=== PATIENT | male | born 1965 | race African-American/Black ===

== ENCOUNTER 2021-06-29 17:01 | Inpatient (IN) | payer SELFPAY ==
[~2021-06-29] VITALS: Ht 185.4 cm; Wt 54.3 kg
--- NOTE | 2021-06-29 17:46 | PHYS DOC ---
Past Medical History Past Medical History: No Pertinent History (GURVINDER NETTLES DO) Past Surgical History: No Surgical History, Other Additional Past Surgical Histo: L eye removed (GURVINDER NETTLES DO) Smoking Status: Never Smoker Alcohol Use: None Drug Use: None (GURVINDER NETTLES DO) General Adult EDM: Chief Complaint: SHORTNESS OF BREATH HPI: HPI: 55-year-old male presents to the emergency department with shortness of breath for the last several days worsening today. He reports that he was recently exp osed to his who was Covid positive last week. He also admits to a cough that is productive. He denies any chest pain currently. He further denies any trauma or injuries. The patient denies nausea, vomiting, fever, chills, abdominal pain, urinary symptoms, recent trauma, or any other complaints. The patient denies any history of blood clots in his legs or his lungs, no personal history of any cancers or clotting disorders. (GURVINDER NETTLES DO) Review of Systems: Review of Systems: Constitutional: Denies fever or chills. Eyes: Denies change in vision, pain. HENT: Denies congestion or sore throat. Respiratory: Admits to cough and shortness of breath. Cardiovascular: Denies chest pain or edema. GI: Denies abdominal pain, nausea. : Denies change in urination, dysuria. Musculoskeletal: Denies extremity pain, or trauma. Skin: Denies rash, skin change. Neurologic: Denies headache, focal weakness. Psychiatric: Denies depression or anxiety. All other systems reviewed as negative except for what was mentioned in the HPI. (GURVINDER NETTLES DO) Heart Score: C/O Chest Pain: No (GURVINDER NETTLES DO) C/O Chest Pain: N/A (LYSSADANISHA I DO) C/O Chest Pain: N/A (RUDOLPH WAHL T DO) Family History: Family History: Noncontributory (GURVINDER NETTLES DO) Allergies: Allergies: Allergies Coded Allergies Type Severity Reaction Last Updated Verified No Known Drug Allergies 06/29/21 No (GURVINDER NETTLES DO) Physical Exam: PE: Constitutional: No acute distress, non-toxic appearance. Speaking full sentences HENT: Atraumatic, bilateral external ears normal, nose normal. Eyes: PERRLA, EOMI, conjunctiva normal, no discharge. Neck: Normal range of motion, supple, no stridor. Cardiovascular: Heart rate regular rhythm. 2+ radial pulses Lungs & Thorax: No respiratory distress, symmetrical expansion. Abdomen: Soft, no tenderness Skin: Warm, dry. Extremities: No tenderness, no cyanosis, ROM intact, no edema. Neurologic: Alert and oriented X 3, normal motor function, normal sensory function, no focal deficits noted. GCS 15. Psychologic: Affect normal, judgment normal, mood normal. (GURVINDER NETTLES DO) Current Patient Data: Vital Signs: Vital Signs Date Time Temp Pulse Resp B/P (MAP) Pulse Ox O2 Delivery O2 Flow Rate FiO2 06/29/21 17:23 97.9 111 18 106/64 64 Room Air 97.9 (GURVINDER NETTLES DO) EKG: EKG: Sinus tachycardia rate of 113, peak T waves seen in the lateral and septal precordial leads, no ectopic beats, normal axis, normal NM, QRS, and QTc intervals. Impression: Peak T waves, possible hyperkalemic changes. Interpreted by me, Gurvinder Nettles D.O. (GURVINDER NETTLES DO) Radiology/Procedures: Radiology/Procedures: [] (GURVINDER NETTLES DO) Impression: Findings: Single upright portable exam of the chest was performed. Heart and mediastinal contours within normal limits. There is a large pneumothorax on the right with mediastinal shift toward the left. Prominent reticular nodular markings throughout the left lung. No pleural effusion. No left-sided pneumothorax. IMPRESSION: 1. Large right-sided pneumothorax with mediastinal shift, suggesting tension pneumothorax. 2. Left-sided airspace disease, atelectasis versus edema or pneumonia. CT chest with contrast PQRS statement: CT scans at this facility use dose reduction including either automated exposure control, iterative reconstructions, and /or weight based radiation dosing via mA and kV modification when appropriate to reduce radiation dose to as low as reasonably achievable. Contrast: 60 mL Omnipaque 300 intravenous contrast HISTORY: Persistent pneumothorax, positive Covid infection, ruptured pneumatocele. COMPARISON: Prior chest x-ray from 11/29/2020 FINDINGS: There is a right thoracostomy tube in place. There is a massive right- sided pneumothorax with collapse of most of the lung, and leftward shift of heart and mediastinum suggesting tension pneumothorax, this is similar to recent chest x-rays which have been previously reported. There is pulmonary emphysema bilaterally. There is a portion of the right upper lobe anterior segment which demonstrates some thin linear bands extending to the posterolateral chest wall could represent some adhesions, there is no obvious subpleural bulla with rupture across the visceral pleura to identify a potential source of this spontaneous pneumothorax. There is opacity of the collapsed right middle lobe and right upper lobe surrounding the vipul. The left lung is aerated, demonstrates mild groundglass opacities at the upper and lower lobes with some areas of greater consolidated density along the posterior lateral basilar lower lobe. Trachea and bronchi are unremarkable. This volume of subcentimeter in thickness right pleural fluid at the lower chest. Heart size normal. Aorta, pulmonary vessels and esophagus unremarkable. No adenopathy in the chest. Bones are unremarkable. IMPRESSION: 1. Right thoracostomy tube in place with a persistent large right-sided pneumothorax, partial collapse of most of the right lung, and persistent leftward shift of the heart and mediastinum stable to recently reported chest x- rays as described above. 2. Opacities of portions of the right middle lobe and right upper lobe could be due to atelectasis or multilobar pneumonia. 3. Pulmonary emphysema. (DANISHA LOCKWOOD DO) Radiology/Procedures: [facility] [address] [place], [place] [id number] IMAGING REPORT Signed PATIENT: REJI PATINO ACCOUNT: [id number] : 1965 LOCATION: ER AGE: 55 SEX: M EXAM STATUS: REG ER ORD. PHYSICIAN: RUDOLPH WAHL DO REASON: RIGHT SIDE PNEUMOTHORAX, CHEST TUBE IN PLACE PROCEDURE: CHEST AP ONLY XR CHEST 1V History: Reason: RIGHT SIDE PNEUMOTHORAX, CHEST TUBE IN PLACE / Spl. Instructions: / History: Comparison: June 29, 2021 Findings: Decreased right pneumothorax with large residual. Right thoracostomy tube projecting over the mid chest. Diffuse interstitial changes. Small right pleural effusion, increased compared to prior. Unchanged heart size. Decreased leftward mediastinal shift. Increased right chest wall subcutaneous gas. Impression: 1. Decreased right pneumothorax with decreased leftward mediastinal shift. Large residual pneumothorax. Interval repositioning of right thoracostomy tube. 2. Increased small right pleural effusion. Electronically signed by: Jose Gaitan DO (06/30/2021 9:07 AM) [id number] DICTATED and SIGNED BY: JOSE GAITAN DO DATE: 06/30/21 [id number] [facility] [address] [place] [address] IMAGING REPORT Signed PATIENT: REJI PATINO ACCOUNT: [id number] : 1965 LOCATION: ER AGE: 55 SEX: M EXAM STATUS: REG ER ORD. PHYSICIAN: RUDOLPH WAHL DO REASON: right side pneumothorax, s/p chest tube placement, evaluate for improvement PROCEDURE: CHEST AP ONLY XR CHEST 1V Clinical Indication: Reason: right side pneumothorax, s/p chest tube placement, evaluate for improvement / Comparison: AP chest, earlier same day. Findings: Mid hemithorax right chest tube is in similar position. Large right pneumothorax but mildly improved from prior study. Diffuse left lung interstitial opacities are unchanged. Leftward mediastinal shift is mildly improved. Right chest wall subcutaneous air is similar, incompletely imaged. Small right pleural effusion is unchanged. IMPRESSION: 1. Stable right chest tube. Large pneumothorax is mildly improved from prior study. Leftward mediastinal shift is mildly improved. Small right pleural effusion is unchanged. 2. Diffuse left lung interstitial opacities are unchanged. Electronically signed by: Neo Soria MD (06/30/2021 2:56 PM) [id number] DICTATED and SIGNED BY: NEO SORIA MD DATE: 06/30/21 [id number] (RUDOLPH WAHL DO) Course & Med Decision Making: Course & Med Decision Making The patient was seen emergently by me due to a hypoxic SPO2 reading in triage of 64% with good waveform at 1730. The patient was placed on a nonrebreather at 15 L which improved his O2 saturations. His initial EKG showed sinus tachycardia with possible hyperkalemic changes. 2 g of calcium gluconate were ordered. Patient was signed out to Dr. Lockwood at 1800 pending workup and likely admisison Critical care time was 30 minutes which includes time at bedside, spent in d iscussion of patient's care with specialists and/or family members, with interpretation of laboratory and/or radiological studies and is exclusive of procedures. Upon chart review, patient with large PTX likely causing his hypoxia, complicated by COVID. CXR was not immediately available to review prior to my sign out to oncoming physician. Per documentation, radiologist discussed critical finding with Dr. Lockwood at 1806 (GURVINDER NETTLES DO) Course & Med Decision Making Assumed care at shift change- Disposition with probable admission. Labs and radiologic imaging pending at shift change. Discussed Xray finds with Radiologist. Large right pneumothorax- suggestive of tension. Emergent pigtail chest tube placed. Procedure- Procedure #1 Pigtail chest tube prepackaged kit used RIght mid axillary line lateral to right nipple Betadine was used to clean the area. Sterile towels were placed around site. I did also use Lidocaine with EPI used for local anesthesia. Once successful anesthesia was achieved an incision that with was made over the fourth lateral rib. Dissection down to the rib with finger. Used needle chest tube introducer to place tube in the right chest. Introducer was removed. Pigtail catheter was sutured to the chest using device Petroleum jelly dressing placed Repeat chest xray post placement. Per in acute change in pneumothorax Procedure #2 Pigtail chest tube prepackaged kit used RIght mid axillary line lateral to right nipple Betadine was used to clean the area. Sterile towels were placed around site. Lidocaine with EPI used for local anesthesia. Once successful anesthesia was achieved Previous pigtail chest tube removed. Dissection down to the rib with finger. 2nd pigtail cath chest tube placed-- redirected posteriorly. Introducer was removed. Pigtail catheter was sutured to the chest using device Petroleum jelly dressing placed Pigtail placed to vacuum seal -- No air leak,-- no bubbling Repeat chest xray post placement. 2nd Chest Xray no acute change in pneumothorax Procedure #3 Chest tube kit- hospital pre-made 24FR chest tube Betadine was used to clean the area. Sterile towels were placed around site. Sterile prepackaged site became in the package. Lidocaine with EPI used for local anesthesia. Once successful anesthesia was achieved Previous pigtail chest tube #2 was removed Dissection down to the rib with finger Positive air flow out chest wall Chest tube placed 23FR Condensation in tube. Petroleum jelly dressing placed Chest tube placed to vacuum seal - No air leak,-- no bubbling Repeat chest xray post placement. 2nd Chest Xray no acute change in pneumothorax Discussed patient pulmonology-- Dr Estes- Recommends transfer to facility that has Thoracic Surgery Capability. Attempted Transfer- [facility] - declined transfer due to capacity [facility] - declined transfer due to capacity [facility] - [facility] due [facility] capacity [facility] - transfer due [facility] - No CT surgery [facility]-- Discussed patient with Hospitalist [employer] [facility]- Willing to accept patient but currently does not have a COVID bed available. 0028hrs- Patients stable. Vital signs HR 74 bmp O2 95% on 15L NRB Reviewed CT Chest-- CT Chest-- no acute change when compared to last CXR. NS 1L added. 0145hrs- Re-evaluated Patient stable with no complaints 15L NRB 96% Chest tube connected to suction @ 20. Patient states breathing improved when placed to suction. Accepting hospital pending. 0435hrs Re-evaluation Patient stable 15LNrb 94% Heart rate 68 Chest tube connected to suction @ 20 Patient with no complaints Contacted for transfer (initial) [facility] ([facility]) - declined transfer due to capacity [facility] - declined transfer due to capacity [facility]- declined transfer due to capacity [facility] - declined transfer due to capacity [facility]- Contacted hospitals for transfer [facility] - declined transfer due to capacity [facility] - [facility] transfer due to [facility] - [facility] due to capacity [facility] - transfer due to capacity 0544hrs Re-evaluation Patient stable 15LNrb 97% Heart rate 74 Chest tube connected to suction @ 20 Patient with no complaints Placement/Transfer pending. Patient signed out to Dr Wahl Re-ASSUMED Care at shift change 1800HRS Per signed out from Dr Wahl patient to be accepted by [facility]. I called [facility] to give report--- Discussed patient with Head Concierge and she is requesting ER Documentation. ER Documentation fax to number provided. 3757hrs engineering supervisor informed me that patient not accepted to [facility]. Will need to Admit here to [facility] 1845hrs Discussed patient with Krysta COOK-- Plan to admit patient to [facility] then will do a hospital to hospital transfer to [facility] once bed is available. (DANISHA LOCKWOOD I DO) Course & Med Decision Making I assumed care of this patient as [address] Danisha Lockwood, awaiting for transfer to another facility due to large right side pneumothorax that is not resolving with chest tube placement, need cardiothoracis surgery evaluation. At 8AM, discussed with Dr. Calderón's nurse, cardiothoracic surgeon at [facility], TOLD THAT HE IS IN THE OR AT THIS TIME, NOT ABLE TO DISCUSS, WILL TAKE DOWN INFORMATION, HE WILL CALL WHENEVER HE IS OUT OF THE OR. Repeated chest xray shown improved lung size but still has a large pneumothorax, discussed with bottom liner, Dr. ESTES, who recommended to keep patient in the ER, need to transfer to another facility with cardiothoracis surgery. AT 11:17, This physician called [facility] for transfer, there is no bed available so transfer was declined. CALLED [facility], transfer center at 310 pm, discussed about availability of accepting patient there, informed that they have no [facility] ICU bed, declined transfer at this time. at 5:30 PM ON 06/30/21 I discussed with the cardiothoracic surgeon at [facility] [place], Dr. Duc Carr who recommended to advance the chest tube to apical, willing to see patient at [facility] IF THE HOSPITALIST ACCEPT PATIENT FOR TRANSFER THERE. IF THERE IS NO BED, PATIENT CAN BE ADMITTED HERE AND THEN TRANSFER LATER. I discussed with Dr. Estes, bottom liner here, agreed to see patient if he is admitted here. I discussed with Dr. Watson Tang, hospitalist, agreed to admit patient here. At 6:10 pm, housekeeping and laundry team leader at [facility] via [facility], Krysta Jacobson, Informed that [facility] [place] may have a bed for patient.... Patient's chest tube was advanced by this physician to apical position.. Patient's care is endorsed to Dr. Danisha Lockwood at shift change, awaiting transfer to [place]. (RUDOLPH WAHL DO) Departure Departure Impression: Primary Impression: Hypoxia Additional Impressions: COVID Pneumothorax on right Disposition: 09 ADMITTED INPATIENT Admitting Physician: JUANPABLO (GURVINDER NETTLES DO) GURVINDER NETTLES DO Jun 29, 2021 17:46 DANISHA LOCKWOOD DO Jun 29, 2021 18:51 RUDOLPH WAHL DO Jun 30, 2021 11:24
[2021-06-29 17:51] LABS: BASO % 0 % (0-3); EOS % 0 % (0-3); HEMATOCRIT 52.9 % (39.0-53.0); LYMPH # 0.8 x10^3/uL (1.0-4.8); LYMPH % 7 % (24-48); MEAN CORPUSCULAR HEMOGLOBIN 28 pg (25-35); MEAN CORPUSCULAR HGB CONC 34 g/dL (31-37); MEAN CORPUSCULAR VOLUME 82 fL (79-100); MONO # 0.5 x10^3/uL (0.0-1.1); MONO % 5 % (0-9); NEUT # 10.7 x10^3/uL (1.8-7.7); NEUT % 89 % (31-73); PLATELET COUNT 170 x10^3/uL (140-400); RED BLOOD COUNT 6.46 x10^6/uL (4.30-5.70); RED CELL DISTRIBUTION WIDTH 14.8 % (11.5-14.5); WHITE BLOOD COUNT 12.1 x10^3/uL (4.0-11.0)
[2021-06-29] MEDS ORDERED: CALCIUM GLUCONATE 1,000 MG/10 ML VIAL. IVP ONE (18:00)
[2021-06-29] MEDS ORDERED: KETOROLAC 15 MG/ML VIAL. IVP ONE (18:00)
[2021-06-29] MEDS ORDERED: IV NORMAL SALINE 1000ML BAG 1,000 ML IV SCH (18:00)
[2021-06-29] MEDS ORDERED: methylPREDNISolone SOD SUCC PF 125 MG/2 ML VIAL. IV ONE (18:00)
[2021-06-29] MEDS ORDERED: LIDOCAINE 1%/EPI 1:100,000 20 ML VIAL. ONE (18:08)
--- NOTE | 2021-06-29 18:09 | RAD ---
Single view chest dated 06/29/2021 6:03 PM: COMPARISON: None Clinical Indication: Shortness of breath. Findings: Single upright portable exam of the chest was performed. Heart and mediastinal contours within normal limits. There is a large pneumothorax on the right with mediastinal shift toward the left. Prominent reticular nodular markings throughout the left lung. No pleural effusion. No left-sided pneumothorax . IMPRESSION: 1. Large right-sided pneumothorax with mediastinal shift, suggesting tension pneumothorax. 2. Left-sided airspace disease, atelectasis versus edema or pneumonia. Results discussed with ER physician at approximately 6:06 PM on the day of the study. Electronically signed by: Carlos Alberto Dowd MD (06/29/2021 6:06 PM) AJAY
[2021-06-29] MEDS ORDERED: DEXAMETHASONE SOD PHOS 4 MG/ML VIAL ONE (18:44)
[2021-06-29] MEDS ORDERED: DEXAMETHASONE SOD PHOS 4 MG/ML VIAL IVP ONE (18:45)
[2021-06-29] MEDS ORDERED: LIDOCAINE 1%/EPI 1:100,000 20 ML VIAL. INJ ONE (18:45)
[2021-06-29 18:50] LABS: % ATYL 4 % (0-0); % BANDS 18 % (0-9); % LYMPHS 7 % (24-48); % MONOS 1 % (0-10); % SEGS 70 % (35-66); PLT ESTIMATE ADEQUATE (ADEQUATE)
[2021-06-29 18:50] LABS: CALCIUM 9.4 mg/dL (8.5-10.1); CREATININE 1.5 mg/dL (0.7-1.3); GFR 58.6
[2021-06-29 18:55] LABS: ALBUMIN 2.8 g/dL (3.4-5.0); DIRECT BILIRUBIN 0.1 mg/dL (0.0-0.2); TOTAL BILIRUBIN 0.3 mg/dL (0.2-1.0); TOTAL PROTEIN 8.1 g/dL (6.4-8.2)
--- NOTE | 2021-06-29 18:56 | RAD ---
Exam: Chest one view INDICATION: Chest tube placement TECHNIQUE: Frontal view of the chest Comparisons: None FINDINGS: Interval placement of a right-sided chest tube. There is persistent large right pneumothorax. There m ay be mild decreased mediastinal shift with persistent complete collapse of the right lung. IMPRESSION: Interval placement of a chest tube with persistent complete collapse of the right lung. Exam is essen tially unchanged from prior. Suspect subcutaneous placement of the chest tube. FOR INTERNAL CODING PURPOSES Critical result: Findings discussed with ER physician at 06/29/2021 6:53 PM. RESULT CODE: (C) Electronically signed by: Katharine Shea MD (06/29/2021 6:53 PM) ЕКАТЕРИНА
[2021-06-29] MEDS ORDERED: ONDANSETRON PF 4 MG/2 ML VIAL. IVP PRN (19:00)
--- NOTE | 2021-06-29 20:03 | RAD ---
Single view chest dated 06/29/2021 7:58 PM: COMPARISON: Study dated same day. Clinical Indication: Chest tube placement. Findings: Single upright portable exam of the chest was performed. Large right-sided pneumothorax with complete collapse of the right lung, unchanged. There is mild mediastinal shift to the right. Smallbore chest tube has slightly changed in position, however the pneumothorax is not significant changed in size. Patchy airspace disease throughout the left lung, stable. IMPRESSION: 1. No significant interval change in large right-sided pneumothorax after chest tube adjustment. Electronically signed by: Carlos Alberto Dowd MD (06/29/2021 8:01 PM) AJAY
--- NOTE | 2021-06-29 20:51 | RAD ---
Chest AP only at 2024: Reason for examination: Chest tube placement. Comparison is made to previous study dated 06/29/2021 at 1934. A large bore right chest tube is now present. There continues to be a large right pneumothorax with c ollapse of the right lung which is unchanged. There continue to be interstitial and alveolar opacitie s throughout the left lung field which show no change. The mediastinum shows a slight shift of midlin e to the left. No pleural effusions are seen. The heart size is normal. No acute bony abnormalities a re seen. IMPRESSION: Large right pneumothorax which is unchanged despite the large bore chest tube. Collapse of the right lung field with mild shift of mediastinum to the left suggesting tension pneumo thorax. Continued presence of diffuse opacities throughout the left lung field without interval change. Electronically signed by: Jaz Alvarenga MD (06/29/2021 8:49 PM) JOHNSON
[2021-06-29] MEDS ORDERED: CONTRAST GIVEN. MC PRN (23:15)
[2021-06-29] MEDS ORDERED: IOHEXOL 300 MG/ML 100ML VIAL. IV ONE (23:30)
--- NOTE | 2021-06-29 23:43 | RAD ---
CT chest with contrast PQRS statement: CT scans at this facility use dose reduction including either automated exposure cont rol, iterative reconstructions, and /or weight based radiation dosing via mA and kV modification when appropriate to reduce radiation dose to as low as reasonably achievable. Contrast: 60 mL Omnipaque 300 intravenous contrast HISTORY: Persistent pneumothorax, positive Covid infection, ruptured pneumatocele. COMPARISON: Prior chest x-ray from 11/29/2020 FINDINGS: There is a right thoracostomy tube in place. There is a massive right-sided pneumothorax wi th collapse of most of the lung, and leftward shift of heart and mediastinum suggesting tension pneum othorax, this is similar to recent chest x-rays which have been previously reported. There is pulmona ry emphysema bilaterally. There is a portion of the right upper lobe anterior segment which demonstra candie some thin linear bands extending to the posterolateral chest wall could represent some adhesions, there is no obvious subpleural bulla with rupture across the visceral pleura to identify a potential source of this spontaneous pneumothorax. There is opacity of the collapsed right middle lobe and rig ht upper lobe surrounding the vipul. The left lung is aerated, demonstrates mild groundglass opacities at the upper and lower lobes with some areas of greater consolidated density along the posterior lat eral basilar lower lobe. Trachea and bronchi are unremarkable. This volume of subcentimeter in thickn ess right pleural fluid at the lower chest. Heart size normal. Aorta, pulmonary vessels and esophagus unremarkable. No adenopathy in the chest. Bones are unremarkable. IMPRESSION: 1. Right thoracostomy tube in place with a persistent large right-sided pneumothorax, partial collaps e of most of the right lung, and persistent leftward shift of the heart and mediastinum stable to rec ently reported chest x-rays as described above. 2. Opacities of portions of the right middle lobe and right upper lobe could be due to atelectasis or multilobar pneumonia. 3. Pulmonary emphysema. Electronically signed by: Jian Sheth MD (06/29/2021 11:40 PM) [facility]
[2021-06-30] MEDS ORDERED: IV NORMAL SALINE 1000ML BAG 1,000 ML IV ONE (00:45)
--- NOTE | 2021-06-30 03:37 | EKG ---
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
--- NOTE | 2021-06-30 09:10 | RAD ---
XR CHEST 1V History: Reason: RIGHT SIDE PNEUMOTHORAX, CHEST TUBE IN PLACE / Spl. Instructions: / History: Comparison: June 29, 2021 Findings: Decreased right pneumothorax with large residual. Right thoracostomy tube projecting over the mid vishnu st. Diffuse interstitial changes. Small right pleural effusion, increased compared to prior. Unchange d heart size. Decreased leftward mediastinal shift. Increased right chest wall subcutaneous gas. Impression: 1. Decreased right pneumothorax with decreased leftward mediastinal shift. Large residual pneumothor ax. Interval repositioning of right thoracostomy tube. 2. Increased small right pleural effusion. Electronically signed by: Jose Gaitan DO (06/30/2021 9:07 AM) [id number]
[2021-06-30] MEDS ORDERED: HYDROcodone/APAP 5/325MG 1 TAB TABLET PO ONE (14:30)
--- NOTE | 2021-06-30 14:58 | RAD ---
XR CHEST 1V Clinical Indication: Reason: right side pneumothorax, s/p chest tube placement, evaluate for improvem ent / Comparison: AP chest, earlier same day. Findings: Mid hemithorax right chest tube is in similar position. Large right pneumothorax but mildly improved from prior study. Diffuse left lung interstitial opacities are unchanged. Leftward mediastinal shift is mildly improved. Right chest wall subcutaneous air is similar, incompletely imaged. Small right pl eural effusion is unchanged. IMPRESSION: 1. Stable right chest tube. Large pneumothorax is mildly improved from prior study. Leftward mediast inal shift is mildly improved. Small right pleural effusion is unchanged. 2. Diffuse left lung interstitial opacities are unchanged. Electronically signed by: Neo Soria MD (06/30/2021 2:56 PM) [id number]
[2021-06-30] MEDS ORDERED: PIPERACILLIN/TAZOBACTAM 3.375 GM in IV NORMAL SALINE 50ML 50 ML IV ONE (16:00)
[2021-06-30] MEDS ORDERED: LIDOCAINE 1% Multi-Dose 20 ML VIAL. ONE (17:38)
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
--- NOTE | 2021-06-30 18:35 | RAD ---
Single view chest dated 06/30/2021 6:31 PM: COMPARISON: 06/30/2021 Clinical Indication: Chest tube advancement. Findings: Single upright portable exam of the chest was performed. Heart and mediastinal contours are stable. T here has been interval repositioning of right-sided chest tube. Moderate size right-sided pneumothora x is similar in size given differences in technique. Subcutaneous emphysema at the lower right neck a nd right chest wall, mildly increased. There is patchy airspace disease throughout the left lung, unc hanged. IMPRESSION: 1. No significant interval change in moderate size right pneumothorax is seen. 2. Left-sided airspace disease, unchanged. Electronically signed by: Carlos Alberto Dowd MD (06/30/2021 6:32 PM) AJAY
[2021-06-30] MEDS ORDERED: MORPHINE SULFATE 2 MG/ML INJ. IVP PRN (20:00)
[2021-06-30] MEDS ORDERED: ONDANSETRON PF 4 MG/2 ML VIAL. IVP PRN (20:00)
[2021-06-30 21:27] VITALS: BP 115/83
[2021-06-30] MEDS ORDERED: cefTRIAXone IV Push 1 GM VIAL. IVP SCH (22:00)
[2021-06-30 23:03] VITALS: BP 103/70
[2021-06-30] MEDS ORDERED: BENZOCAINE/MENTHOL LOZENGE. PO PRN (23:15)
[2021-07-01 02:16] VITALS: BP 103/69
[2021-07-01 05:34] LABS: CALCIUM 9.4 mg/dL (8.5-10.1); CREATININE 0.8 mg/dL (0.7-1.3)
[2021-07-01 05:36] LABS: BASO % 0 % (0-3); EOS % 0 % (0-3); HEMATOCRIT 46.6 % (39.0-53.0); HEMOGLOBIN 15.5 g/dL (13.0-17.5); LYMPH # 0.8 x10^3/uL (1.0-4.8); LYMPH % 7 % (24-48); MEAN CORPUSCULAR HEMOGLOBIN 27 pg (25-35); MEAN CORPUSCULAR HGB CONC 33 g/dL (31-37); MEAN CORPUSCULAR VOLUME 82 fL (79-100); MONO % 8 % (0-9); NEUT # 10.7 x10^3/uL (1.8-7.7); NEUT % 86 % (31-73); PLATELET COUNT 239 x10^3/uL (140-400); RED BLOOD COUNT 5.67 x10^6/uL (4.30-5.70); WHITE BLOOD COUNT 12.5 x10^3/uL (4.0-11.0)
[2021-07-01 05:40] LABS: ALBUMIN 2.3 g/dL (3.4-5.0); ALBUMIN/GLOBULIN RATIO 0.5 (1.0-1.7); POTASSIUM 5.4 mmol/L (3.5-5.1); TOTAL BILIRUBIN 0.3 mg/dL (0.2-1.0); TOTAL PROTEIN 7.4 g/dL (6.4-8.2)
[2021-07-01 07:00] VITALS: BP 128/71
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
[2021-07-01] MEDS ORDERED: DEXAMETHASONE SOD PHOS 4 MG/ML VIAL IVP SCH (09:00)
[2021-07-01] MEDS ORDERED: LACTOBACILLUS RHAMNOSUS GG 1 CAPSULE. PO SCH (09:00)
[2021-07-01] MEDS ORDERED: REMDESIVIR LOAD in IV NORMAL SALINE 250ML TV IV ONE (10:00)
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
[2021-07-01 11:00] VITALS: BP 123/71
--- NOTE | 2021-07-01 11:08 | RAD ---
EXAM: AP View of the chest DATE: 07/01/2021 7:41 AM INDICATION: Reason: PTX / Spl. Instructions: / History: COMPARISON: 06/30/2021 FINDINGS: Right chest tubes in stable position. Moderate-sized right pneumothorax, stable. Heart is mildly enlarged. Aorta is tortuous with atherosclerotic calcifications. Heterogeneous lung airspace opacities are also grossly stable. No pleural effusion. IMPRESSION: Moderate right pneumothorax, stable in size, with chest tube in place. Electronically signed by: Dustin Rodriguez MD (07/01/2021 11:06 AM) [id number]
--- NOTE | 2021-07-01 12:25 | NUR ---
SS following for discharge planning. SS reviewed pt chart and discussed with pt RN. Pt is from home and is currently on 15 liter non-rebreather mask. COVID19 positive. Pt on IV Remdesivir, IV Decadron, and IV Rocephin. Pt needing Cardiothoracic surgeon. Pt accepted at [facility], [address] [facility], [address]. Room 358. Report# [phone]. Packet and ambulance form on the chart.
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
[2021-07-02] MEDS ORDERED: REMDESIVIR 100mg in NORMAL SALINE 250ML X 4 DAYS IV SCH (10:00)
== END 2021-07-01 13:19 | disposition short-term general hospital (02) | DRG 199 ==
LOC: ER 17:01 → 6 SOUTH 06-30 20:24
PROVIDERS: ADMIT Family Medicine; ATTEND Family Medicine
PROC: 0W9930Z Drainage of Right Pleural Cavity with Drainage Device, Percutaneous Approach (ICD-10-PCS; principal; 2021-06-30)
PROC: XW033E5 Introduction of Remdesivir Anti-infective into Peripheral Vein, Percutaneous Approach, New Technology Group 5 (ICD-10-PCS; 2021-07-01)
DX: J93.9 Pneumothorax, unspecified (principal); U07.1 COVID-19; J96.01 Acute respiratory failure with hypoxia; J12.82 Pneumonia due to coronavirus disease 2019; N17.0 Acute kidney failure with tubular necrosis; E43 Unspecified severe protein-calorie malnutrition; Z68.1 Body mass index [BMI] 19.9 or less, adult; F17.200 Nicotine dependence, unspecified, uncomplicated; J43.9 Emphysema, unspecified; J98.4 Other disorders of lung; Z90.01 Acquired absence of eye
CPT/HCPCS: 32551; 36415; 71045; 71260; 80048; 80053; 80076; 83880; 84484; 85007; 85025; 87426; 93005; 96361; 96365; 96375; J0696; J1100; J1885; J2543; J3490; J7030; J7050; Q9967; 99291-25; G0378